=== PATIENT | male | born 1945 | race Caucasian/White ===

== ENCOUNTER 2018-07-29 15:19 | Outpatient (REF) | payer MEDICARE, BC, SELFPAY ==
[2018-07-31 14:51] LABS: PSA, Screening <0.1 ng/ml (0-6.5)
== END 2018-07-29 15:39 ==
LOC: NCHCN 15:19
PROVIDERS: PCP Physician Assistant; Visit Provider Physician Assistant Medical
DX: Z12.5 Encounter for screening for malignant neoplasm of prostate; C61 Malignant neoplasm of prostate
CPT/HCPCS: 84153

== ENCOUNTER 2019-07-30 20:13 | Outpatient (REF) | payer MEDICARE, BC, SELFPAY ==
[2019-07-30 18:58] LABS: ALT 48 U/L (16-63); AST 24 U/L (15-37); Albumin 3.9 g/dL (3.4-5.0); Alkaline Phosphatase 53 U/L (46-116); Anion Gap 9.9 mmol/L (3-11); BUN 18 mg/dL (7-18); Bilirubin, Total 1.2 mg/dL (0.2-1.0); CO2 28.1 mmol/L (21.0-32.0); CREATININE 0.96 mg/dL (0.70-1.30); Calcium 8.3 mg/dL (8.5-10.1); Calculated LDL 150 mg/dL (<100); Chloride 104 mmol/L (98-107); Cholesterol 223 mg/dL (<200); Glucose 104 mg/dL (74-106); HDL Cholesterol 55 mg/dL (40-60); Potassium 4.2 mmol/L (3.5-5.1); Sodium 142 mmol/L (136-145); Total Protein 6.8 g/dL (6.4-8.2); Triglyceride 90 mg/dL (<150)
[2019-07-30 19:04] LABS: Abs Immature Grans 0.01 k/cumm (0.0-0.09); Absolute Basophil Count 0.04 k/cumm (0.0-0.2); Absolute Eosinophil Count 0.15 k/cumm (0.0-0.7); Absolute Monocyte Count 0.76 k/cumm (0.11-0.7); Absolute Neutrophil Count 2.93 k/cumm (1.2-6.7); Basophils % 0.7; Eosinophils % 2.7; HCT 44.4 % (40.0-50.0); HGB 14.8 g/dL (13.5-17.5); Immature Grans % 0.2 %; Lymphocytes % 30.4; Mean Corp. HGB Concentration 33.3 g/dL (32.0-36.0); Mean Corpuscular Hemoglobin 31.5 pg (27.0-33.0); Mean Corpuscular Volume 94.5 fL (80-95); Mean Platelet Volume 10.1 fL (8.0-11.0); Monocytes % 13.6; Neutrophils % 52.4; Platelet Count 276 x1000/uL (130-400); RBC Distribution Width 13.5 % (11.8-14.1); White Blood Cell Count 5.59 k/cumm (4.4-10.8)
[2019-08-03 10:04] LABS: PSA, Diagnostic <0.1 ng/mL (0.0-6.5)
== END 2019-07-30 20:33 ==
LOC: NCHCN 20:13
PROVIDERS: PCP Physician Assistant; Visit Provider Physician Assistant
DX: C61 Malignant neoplasm of prostate (principal); N52.31 Erectile dysfunction following radical prostatectomy; E78.5 Hyperlipidemia, unspecified
CPT/HCPCS: 80053; 80061; 84153; 85025

== ENCOUNTER 2020-03-10 13:53 | Outpatient (REF) | payer MEDICARE, BC, SELFPAY ==
[2020-03-10 19:36] LABS: HCT 45.9 % (40.0-50.0); HGB 15.1 g/dL (13.5-17.5); MCH 31.7 pg (27.0-33.0); MCHC 32.9 % (32.0-36.0); MCV 96.2 fL (80-95); Platelet Count 267 10^3/uL (130-400); RBC 4.77 10^6/uL (4.36-5.78); RDW 13.2 % (11.8-14.1); RDW-SD 47.3 fL; WBC 5.45 10^3/uL (4.4-10.8)
[2020-03-10 19:56] LABS: ALT 66 U/L (16-63); Calculated LDL 136 mg/dL (<100); Cholesterol 231 mg/dL (<200); Glucose 103 mg/dL (74-106); HDL Cholesterol 54 mg/dL (40-60); Triglyceride 208 mg/dL (<150)
[2020-03-10 20:32] LABS: Creatine Kinase 124 U/L (39-308)
[2020-03-14 09:33] LABS: IgE 151 IU/mL (<158)
== END 2020-03-10 14:13 ==
LOC: NCHCN 13:53
PROVIDERS: PCP Physician Assistant; Visit Provider Internal Medicine
DX: E78.5 Hyperlipidemia, unspecified (principal); L27.0 Generalized skin eruption due to drugs and medicaments taken internally
CPT/HCPCS: 80061; 82550; 82947; 85027; 82785; 84460

== ENCOUNTER 2020-07-27 12:21 | Outpatient (REF) | payer MEDICARE, BC, SELFPAY ==
[2020-07-27 16:58] LABS: Abs Immature Grans 0.01 10^3/uL (0.0-0.06); Absolute Basophil Count 0.03 10^3/uL (0.0-0.2); Absolute Eosinophil Count 0.17 10^3/uL (0.0-0.7); Absolute Lymphocyte Count 1.71 10^3/uL (1.2-3.4); Absolute Monocyte Count 0.69 10^3/uL (0.1-0.8); Absolute Neutrophil Count 2.38 10^3/uL (1.2-6.7); Basophils % 0.6; Eosinophils % 3.4; HGB 14.8 g/dL (13.5-17.5); Immature Grans % 0.2; Lymphocytes % 34.3; MCH 32.2 pg (27.0-33.0); MCHC 33.6 % (32.0-36.0); MCV 95.9 fL (80-95); MPV 10.2 fL (8.0-11.0); Monocytes % 13.8; Neutrophils % 47.7; Nucleated RBC 0 %; Platelet Count 247 10^3/uL (130-400); RBC 4.59 10^6/uL (4.36-5.78); RDW 13.1 % (11.8-14.1); RDW-SD 46.7 fL; WBC 4.99 10^3/uL (4.4-10.8)
[2020-07-27 22:35] LABS: PSA, Diagnostic <0.1 ng/mL (0.0-6.5)
== END 2020-07-27 12:22 | disposition home or self-care (01) ==
LOC: NCHCN 12:21
PROVIDERS: PCP Physician Assistant; Visit Provider Physician Assistant
DX: E78.5 Hyperlipidemia, unspecified (principal); C61 Malignant neoplasm of prostate
CPT/HCPCS: 80053; 80061; 84153; 85025

== ENCOUNTER 2020-07-29 19:59 | Outpatient (REF) | payer MEDICARE, BC, SELFPAY ==
[2020-07-29 16:26] LABS: ALT 51 U/L (16-63); AST 26 U/L (15-37); Albumin 3.9 g/dL (3.4-5.0); Alkaline Phosphatase 62 U/L (46-116); Anion Gap 7.1 mmol/L (3-11); BUN 19 mg/dL (7-18); Bilirubin, Total 0.9 mg/dL (0.2-1.0); CO2 29.9 mmol/L (21.0-32.0); CREATININE 1.1 mg/dL (0.70-1.30); Calcium 8.7 mg/dL (8.5-10.1); Chloride 102 mmol/L (98-107); Glucose 105 mg/dL (74-106); Potassium 4.3 mmol/L (3.5-5.1); Sodium 139 mmol/L (136-145)
[2020-08-03 11:05] LABS: Misc Referral (UVM) See Comments
== END 2020-07-29 20:00 | disposition home or self-care (01) ==
LOC: NCHCN 19:59
PROVIDERS: PCP Physician Assistant; Visit Provider Physician Assistant
DX: L25.9 Unspecified contact dermatitis, unspecified cause (principal); E78.5 Hyperlipidemia, unspecified
CPT/HCPCS: 80053; 80061

== ENCOUNTER 2021-09-01 15:52 | Outpatient (REF) | payer MEDICARE, SELFPAY ==
[2021-09-01 19:01] LABS: Anion Gap 7.5 mmol/L (3-11); BUN 20 mg/dL (7-18); CO2 28.5 mmol/L (21.0-32.0); CREATININE 1.1 mg/dL (0.70-1.30); Calcium 8.8 mg/dL (8.5-10.1); Chloride 104 mmol/L (98-107); Glucose 96 mg/dL (74-106); Potassium 4.3 mmol/L (3.5-5.1); Sodium 140 mmol/L (136-145)
[2021-09-04 10:42] LABS: PSA, Diagnostic <0.1 ng/mL (0.0-6.5)
== END 2021-09-01 15:53 | disposition home or self-care (01) ==
LOC: NCHCN 15:52
PROVIDERS: PCP Physician Assistant; Visit Provider Physician Assistant
DX: C61 Malignant neoplasm of prostate (principal); E78.5 Hyperlipidemia, unspecified; Z00.00 Encounter for general adult medical examination without abnormal findings
CPT/HCPCS: 80048; 84153

== ENCOUNTER 2022-09-04 09:44 | Outpatient (REF) | payer MEDICARE, SELFPAY ==
[2022-09-04 19:28] LABS: ALT 68 U/L (16-63); AST 37 U/L (15-37); Alkaline Phosphatase 62 U/L (46-116); Anion Gap 7.4 mmol/L (3-11); BUN 19 mg/dL (7-18); Bilirubin, Total 1.3 mg/dL (0.2-1.0); CO2 28.6 mmol/L (21.0-32.0); CREATININE 0.9 mg/dL (0.70-1.30); Calcium 9.2 mg/dL (8.5-10.1); Calculated LDL 169 mg/dL (<100); Chloride 107 mmol/L (98-107); Cholesterol 251 mg/dL (<200); Estimated GFR 89.07 (mL/min/1.73m2); Glucose 106 mg/dL (74-106); HDL Cholesterol 57 mg/dL (40-60); Potassium 4.6 mmol/L (3.5-5.1); Sodium 143 mmol/L (136-145); Total Protein 7.2 g/dL (6.4-8.2); Triglyceride 127 mg/dL (<150)
[2022-09-05 18:00] LABS: PSA, Diagnostic <0.1 ng/mL (<=6.5)
== END 2022-09-04 09:45 | disposition home or self-care (01) ==
LOC: NCHCN 09:44
PROVIDERS: PCP Physician Assistant; Visit Provider Physician Assistant
DX: E78.5 Hyperlipidemia, unspecified (principal); C61 Malignant neoplasm of prostate
CPT/HCPCS: 80053; 80061; 84153

== ENCOUNTER 2023-09-10 10:13 | Outpatient (REF) | payer MEDICARE, SELFPAY ==
[2023-09-10 19:56] LABS: HCT 47.3 % (40.0-50.0); HGB 15.9 g/dL (13.5-17.5); MCH 33.4 pg (27.0-33.0); MCHC 33.6 % (32.0-36.0); MCV 99 fL (80-95); MPV 9.9 fL (8.0-11.0); Platelet Count 263 10^3/uL (130-400); RBC 4.76 10^6/uL (4.36-5.78); RDW 13.2 % (11.8-14.1); RDW-SD 47.8 fL; WBC 4.78 10^3/uL (4.4-10.8)
[2023-09-10 20:17] LABS: ALT 56 U/L (16-63); AST 32 U/L (15-37); Albumin 4.1 g/dL (3.4-5.0); Alkaline Phosphatase 70 U/L (46-116); Anion Gap 9.4 mmol/L (3-11); BUN 18 mg/dL (7-18); Bilirubin, Total 1.3 mg/dL (0.2-1.0); CO2 28.6 mmol/L (21.0-32.0); CREATININE 0.9 mg/dL (0.70-1.30); Calculated LDL 138 mg/dL (<100); Chloride 105 mmol/L (98-107); Cholesterol 222 mg/dL (<200); Estimated GFR 88.51 (mL/min/1.73m2); Glucose 112 mg/dL (74-106); HDL Cholesterol 57 mg/dL (40-60); Potassium 4.3 mmol/L (3.5-5.1); Sodium 143 mmol/L (136-145); Total Protein 7.3 g/dL (6.4-8.2); Triglyceride 138 mg/dL (<150)
[2023-09-12 19:37] LABS: PSA, Ultrasensitive <0.01 ng/mL (<= 6.5)
== END 2023-09-10 10:14 | disposition home or self-care (01) ==
LOC: NCHCN 10:13
PROVIDERS: PCP Physician Assistant; Visit Provider Physician Assistant
DX: E78.5 Hyperlipidemia, unspecified (principal); C61 Malignant neoplasm of prostate
CPT/HCPCS: 80053; 80061; 84153; 85027

== ENCOUNTER 2024-09-22 14:00 | Outpatient (REF) | payer MEDICARE, SELFPAY ==
[2024-09-22 19:56] LABS: Abs Immature Grans 0.02 10^3/uL (0.0-0.06); Absolute Basophil Count 0.04 10^3/uL (0.0-0.2); Absolute Eosinophil Count 0.08 10^3/uL (0.0-0.7); Absolute Lymphocyte Count 0.62 10^3/uL (1.2-3.4); Absolute Monocyte Count 0.43 10^3/uL (0.1-0.8); Absolute Neutrophil Count 3.35 10^3/uL (1.2-6.7); Basophils % 0.9 %; Eosinophils % 1.8 %; HGB 15.6 g/dL (13.5-17.5); Immature Grans % 0.4 %; Lymphocytes % 13.7 %; MCH 33.6 pg (27.0-33.0); MCHC 33.9 % (32.0-36.0); MCV 99 fL (80-95); MPV 9.9 fL (8.0-11.0); Monocytes % 9.5 %; Neutrophils % 73.7 %; Platelet Count 213 10^3/uL (130-400); RBC 4.64 10^6/uL (4.36-5.78); RDW 13.1 % (11.8-14.1); RDW-SD 47.6 fL; WBC 4.54 10^3/uL (4.4-10.8)
[2024-09-22 20:18] LABS: ALT 46 U/L (16-63); AST 32 U/L (15-37); Albumin 4.3 g/dL (3.4-5.0); Alkaline Phosphatase 77 U/L (46-116); Anion Gap 7.2 mmol/L (3-11); BUN 14 mg/dL (7-18); Bilirubin, Total 2.1 mg/dL (0.2-1.0); CO2 29.8 mmol/L (21.0-32.0); CREATININE 0.9 mg/dL (0.70-1.30); Calcium 9.5 mg/dL (8.5-10.1); Calculated LDL 143 mg/dL (<100); Chloride 105 mmol/L (98-107); Cholesterol 260 mg/dL (<200); Estimated GFR 87.96 (mL/min/1.73m2); Glucose 100 mg/dL (74-106); HDL Cholesterol 75 mg/dL (>or=40); Potassium 4.2 mmol/L (3.5-5.1); Sodium 142 mmol/L (136-145); Total Protein 7.6 g/dL (6.4-8.2); Triglyceride 211 mg/dL (<150)
[2024-09-24 10:31] LABS: Hepatitis C Ab w Rflx HCV PCR Negative (Negative)
[2024-09-24 21:01] LABS: PSA, Ultrasensitive <0.01 ng/mL (<= 6.5)
== END 2024-09-22 14:01 | disposition home or self-care (01) ==
LOC: NCHCN 14:00
PROVIDERS: PCP Physician Assistant; Visit Provider Physician Assistant
DX: R74.01 Elevation of levels of liver transaminase levels (principal); C61 Malignant neoplasm of prostate; Z11.59 Encounter for screening for other viral diseases; E78.5 Hyperlipidemia, unspecified
CPT/HCPCS: 80053; 80061; 84153; 86803; 85025